=== PATIENT | female | born 1940 | race Caucasian/White ===

== ENCOUNTER 2018-07-05 11:53 | Observation (INO) | payer MEDICARE ==
[~2018-07-05] VITALS: Ht 170.2 cm; Wt 85.9 kg
[2018-07-05 12:17] LABS: EOSINOPHILS % (AUTO) 1.2 % (0.0-8.0); HEMATOCRIT 42.9 % (36-48); LYMPHOCYTES % (AUTO) 13.1 % (21.0-51.0); MEAN CORPUSCULAR HEMOGLOBIN 30.7 pg (27.0-33.0); MEAN CORPUSCULAR HGB CONC 33.3 g/dL (32.0-36.0); MEAN CORPUSCULAR VOLUME 92.1 fL (79-99); MONOCYTES % (AUTO) 4.6 % (3.0-13.0); NEUTROPHILS % (AUTO) 80.1 % (40.0-77.0); PLATELET COUNT (AUTO) 224 K/uL (130-400); RED BLOOD CELL COUNT(AUTO) 4.66 MIL/uL (4.00-5.50); RED CELL DISTRIBUTION WIDTH 15.5 % (11.0-15.5); WHITE BLOOD COUNT (AUTO) 5.6 K/uL (4.8-10.8)
[2018-07-05 12:29] LABS: ALBUMIN 3.8 g/dL (3.5-5.0); BILIRUBIN,TOTAL 0.5 mg/dL (0.2-1.0); CREATININE 1.3 mg/dL (0.5-1.5); TOTAL PROTEIN, SERUM 7.8 g/dL (6.0-8.3)
[2018-07-05 12:43] LABS: APPEARANCE,URINE Clear (CLEAR); BILIRUBIN,URINE Negative (NEGATIVE); COLOR,URINE Yellow (YELLOW); GLUCOSE, URINE (UA) Negative (NEGATIVE); KETONES,URINE Negative (NEGATIVE); LEUKOCYTE ESTERASE ,URINE Large (NEGATIVE); NITRATE,URINE Negative (NEGATIVE); OCCULT BLOOD,URINE Negative (NEGATIVE); PH,URINE 5.5 (5.0-8.0); PROTEIN,URINE Negative (NEGATIVE); UROBILINOGEN,URINE 0.2 mg/dL (0.2-1.0)
[2018-07-05 12:48] LABS: INR 1.17 (0.85-1.15); PARTIAL THROMBOPLASTIN TIME 63.3 SEC (26.3-35.5); PROTHROMBIN TIME 12.2 SEC (9.6-11.6)
[2018-07-05 13:02] LABS: BACTERIA,URINE Few /HPF (None Seen); RBC,URINE None Seen /HPF (0-1)
[2018-07-05] MEDS ORDERED: POTASSIUM CHLORIDE 20 MEQ ERTAB PO ONE (13:43)
[2018-07-05] MEDS ORDERED: SODIUM CHLORIDE 0.9% 100 ML IV ONE (13:43)
[2018-07-05] MEDS ORDERED: CEFTRIAXONE SODIUM 1 GM ONE (13:43)
[2018-07-05] MEDS: SODIUM CHLORIDE 0.9% 1000ML 1,000 ML IV SCH (14:41)
[2018-07-05] MEDS: NITROGLYCERIN 1GM/1 INCH PACKET TD SCH ×2 (14:45→23:14)
[2018-07-05] MEDS ORDERED: ACETAMINOPHEN 325 MG TAB PO PRN ×2 (14:45)
[2018-07-05] MEDS ORDERED: HYDRALAZINE HCL 20 MG/ML VIAL IV PRN (14:45)
[2018-07-05] MEDS ORDERED: ONDANSETRON HCL 4 MG/2 ML VIAL IV PRN (14:45)
[2018-07-05] MEDS ORDERED: MORPHINE SULFATE 2 MG/ML 1ML SYG IV PRN (14:45)
[2018-07-05] MEDS ORDERED: ENOXAPARIN SODIUM 40 MG/0.4 ML SYRINGE SQ ONE (16:49)
[2018-07-05] MEDS ORDERED: NITROGLYCERIN 1GM/1 INCH PACKET TD ONE (16:50)
[2018-07-05 17:20] VITALS: BP 169/84
[2018-07-05] MEDS ORDERED: EZET10TA26 PO (17:28)
[2018-07-05] MEDS ORDERED: METO25TA6 PO (17:28)
[2018-07-05] MEDS ORDERED: FURO40TA5 PO (17:28)
[2018-07-05] MEDS ORDERED: LEVO50TA11 PO (17:28)
[2018-07-05] MEDS ORDERED: LOSA100T58 PO (17:28)
[2018-07-05] MEDS ORDERED: RIVA20TA PO (17:28)
[2018-07-05] MEDS ORDERED: PRED-409 PO (17:28)
[2018-07-05] MEDS ORDERED: AZAT50TA PO (17:28)
[2018-07-05] MEDS ORDERED: LORA10TA7 PO (17:28)
[2018-07-05] MEDS ORDERED: AEC81 PO (17:28)
[2018-07-05] MEDS ORDERED: POTASSIUM CHLORIDE 10% ELIXIR 20 MEQ/15 ML UDCUP PO PRN (18:45)
[2018-07-05] MEDS ORDERED: POTASSIUM CHLORIDE 20MEQ/100ML 100 ML IV PRN (18:45)
[2018-07-05] MEDS ORDERED: LIDOCAINE HCL-MPF 1% 2ML VIAL IVP PRN (18:45)
[2018-07-05 19:57] LABS: HEMATOCRIT 38.6 % (36-48)
[2018-07-05 20:00] VITALS: BP 178/79
--- NOTE | 2018-07-05 20:30 | NUR ---
ASSESSMENT PT RESTING IN BED. PT DENIES ANY PAIN/CHEST PAIN. S.O.B. O2 2L NC APPLIED. WHITE BOARD UP-DATED. CALLBELL REVIEWED AND WITHIN REACH. ASSESSMENT COMPLETED, SEE FLOW SHEET.
[2018-07-05 20:34] LABS: MYOGLOBIN 258 ng/mL (10-92); TROPONIN I < 0.04 ng/mL (0.00-0.06)
[2018-07-05 20:38] LABS: CREATINE KINASE, TOTAL 419 U/L (21-232)
[2018-07-05] MEDS ORDERED: METOPROLOL TARTRATE 25 MG TAB PO SCH (21:00)
[2018-07-05] MEDS: FAMOTIDINE/PF 20 MG/2 ML VIAL IV SCH (21:40)
[2018-07-05] MEDS: POTASSIUM CHLORIDE 20 MEQ ERTAB PO PRN ×2 (21:40→23:15)
[2018-07-05 23:42] LABS: CREATINE KINASE, TOTAL 347 U/L (21-232); MYOGLOBIN 253 ng/mL (10-92); TROPONIN I < 0.04 ng/mL (0.00-0.06)
[2018-07-06] VITALS: BP 129/57
[2018-07-06] MEDS: POTASSIUM CHLORIDE 20 MEQ ERTAB PO PRN (01:59)
[2018-07-06 04:00] VITALS: BP 130/61
[2018-07-06] MEDS: SODIUM CHLORIDE 0.9% 1000ML 1,000 ML IV SCH (04:39)
[2018-07-06] MEDS: NITROGLYCERIN 1GM/1 INCH PACKET TD SCH (06:41)
[2018-07-06 06:46] LABS: CHOLESTEROL 203 mg/dL (<200); CREATINE KINASE, TOTAL 319 U/L (21-232); HDL CHOLESTEROL 49 mg/dL (35-85); LDL DIRECT 123 mg/dL (0-99); MYOGLOBIN 287 ng/mL (10-92); TRIGLYCERIDES 177 mg/dL (30-200); TROPONIN I < 0.04 ng/mL (0.00-0.06)
--- NOTE | 2018-07-06 07:35 | NUR ---
REPORT REPORT GIVEN TO [facility].
[2018-07-06 08:01] VITALS: BP 117/51
[2018-07-06] MEDS ORDERED: NITROGLYCERIN 1GM/1 INCH PACKET TD SCH (08:06)
[2018-07-06] MEDS ORDERED: ASPIRIN 325 MG TABLET PO SCH (09:00)
[2018-07-06] MEDS ORDERED: LORATADINE 10 MG TABLET PO SCH (09:00)
[2018-07-06] MEDS ORDERED: METOPROLOL TARTRATE 25 MG TAB PO SCH (09:00)
[2018-07-06] MEDS ORDERED: FUROSEMIDE 40 MG TABLET PO SCH (09:00)
[2018-07-06] MEDS ORDERED: ENOXAPARIN SODIUM 40 MG/0.4 ML SYRINGE SQ SCH (09:00)
[2018-07-06] MEDS ORDERED: RIVAROXABAN 20 MG TABLET PO SCH (09:00)
[2018-07-06] MEDS ORDERED: PREDNISONE 5 MG TABLET PO SCH (09:00)
[2018-07-06] MEDS ORDERED: LOSARTAN 100 MG TABLET PO SCH (09:00)
[2018-07-06] MEDS ORDERED: AZATHIOPRINE 50 MG TAB PO SCH (09:00)
[2018-07-06] MEDS ORDERED: EZETIMIBE 10 MG TAB PO SCH (09:00)
[2018-07-06] MEDS: FAMOTIDINE/PF 20 MG/2 ML VIAL IV SCH (09:13)
[2018-07-06 11:47] VITALS: BP 109/48
[2018-07-07] MEDS ORDERED: LEVOTHYROXINE 50 MCG TABLET PO SCH (07:30)
== END 2018-07-06 13:35 | disposition home or self-care (01) ==
LOC: EDH 11:53 → EDHIP 14:41 → 2CH 17:26
PROVIDERS: ADMIT Internal Medicine; ATTEND Internal Medicine
DX: R07.89 Other chest pain (principal); E78.5 Hyperlipidemia, unspecified; E03.9 Hypothyroidism, unspecified; E87.6 Hypokalemia; I10 Essential (primary) hypertension; I25.10 Atherosclerotic heart disease of native coronary artery without angina pectoris; I25.2 Old myocardial infarction; Z95.1 Presence of aortocoronary bypass graft; Z96.653 Presence of artificial knee joint, bilateral; Z90.49 Acquired absence of other specified parts of digestive tract; Z88.8 Allergy status to other drugs, medicaments and biological substances
CPT/HCPCS: 36415 ×2; 71045; 80053; 80061; 81001; 82550 ×3; 83874 ×3; 84132; 84484 ×4; 85014; 85018; 85025; 85610; 85730; 93005 ×2; 96374; 96376; 99291; G0378 ×23; J0696; J1650; J3490 ×2; J7030; J7500; J7512